=== PATIENT | male | born 2005 ===

== ENCOUNTER 2024-10-05 12:39 | Emergency (ER) | payer SELFPAY ==
[~2024-10-05] VITALS: Ht 175.3 cm; Wt 90.7 kg
[2024-10-05] MEDS ORDERED: FentaNYL Citrate 50 MCG/ML 2 ML Injection IM ONE (15:25)
[2024-10-05] MEDS ORDERED: Ibuprofen 400 MG Tab PO ONE (15:40)
== END 2024-10-05 16:11 | disposition home or self-care (01) ==
LOC: ER 12:39
DX: S43.004A Unspecified dislocation of right shoulder joint, initial encounter (principal); W18.30XA Fall on same level, unspecified, initial encounter
CPT/HCPCS: 73030; 99283-25; A9270; J3010